=== PATIENT | male | born 1990 | race Caucasian/White ===

== ENCOUNTER 2021-12-01 13:09 | Emergency (ER) | payer OTHER ==
[~2021-12-01] VITALS: Ht 177.8 cm; Wt 107.3 kg
[2021-12-01 13:34] VITALS: BP 121/78
[2021-12-01] MEDS ORDERED: DOXYCYCLINE HYCLATE 100 MG TABLET PO ONE (14:30)
[2021-12-01] MEDS ORDERED: IBUPROFEN 600 MG TABLET PO ONE (14:30)
[2021-12-01] MEDS ORDERED: DOXY-354 PO (14:40)
[2021-12-01] MEDS ORDERED: IBUP-2070 PO (14:40)
== END 2021-12-01 14:46 | disposition home or self-care (01) ==
LOC: EMS 13:11
DX: S80.861A Insect bite (nonvenomous), right lower leg, initial encounter (principal); L03.115 Cellulitis of right lower limb; W57.XXXA Bitten or stung by nonvenomous insect and other nonvenomous arthropods, initial encounter; Y93.89 Activity, other specified; Y92.89 Other specified places as the place of occurrence of the external cause; Y99.8 Other external cause status; Z88.0 Allergy status to penicillin
CPT/HCPCS: 99283